=== PATIENT | male | born 1990 | race Caucasian/White ===

== ENCOUNTER 2018-03-26 14:37 | Emergency (ER) | payer OTHER ==
[~2018-03-26] VITALS: Ht 182.9 cm; Wt 77.1 kg
--- OUTSIDE RECORDS SUMMARY | 2018-03-26 14:41 | XMS REPORT ---
Author Author CARLOS CURRIE Organization [facility] Address [address] [place] [address] Care Team Providers Care Inside Sales Assistant Name Role Phone CARLOS CURRIE Unavailable PROBLEMS Type Condition ICD9-CM Code [id number] Code Onset Dates Condition Status SNOMED Code Problem Paranoid schizophrenia F20.0 Active 91838997 ALLERGIES No Information ENCOUNTERS Encounter Location Date Diagnosis [facility] [address] [place] [phone] Mar, [facility] [address], [place] [address] Feb, [facility] [id number] [place] [phone] Feb, Paranoid schizophrenia F20.0 IMMUNIZATIONS No Known Immunizations SOCIAL HISTORY Never Assessed REASON FOR VISIT intake PLAN OF CARE VITAL SIGNS MEDICATIONS Medication Instructions Dosage Frequency Start Date End Date Duration Status Abilify 10 MG Orally Once a day 1 tablet 24h 30 day(s) Active Geodon 40 MG Orally Twice a day 1 capsule with food 12h 30 day(s) Active RESULTS No Results PROCEDURES Procedure Date Ordered Result Body Site [facility] VISIT MENTAL HEALTH NEW PT Mar 13, 2018 Psych diagnostic evaluation, new patient Mar 13, 2018 INSTRUCTIONS MEDICATIONS ADMINISTERED No Known Medications
--- NOTE | 2018-03-26 15:06 | ED GU-Male ---
General Chief Complaint: -Male Stated Complaint: BLOOD IN URINE History of Present Illness Date Seen by Provider: Mar 26, 2018 Time Seen by Provider: 15:05 Initial Comments 27 year old male presents for Hematuria. He noted dark red to brown blood, with last 3 urinations today. He denies back pain or history of renal calculi. No hx of STIs or other penile discharge. He denies any trauma to his abdomen, back or genitalia. He is homeless, living in tent [place]. He went to [facility] today, that is when he noted the blood. Timing/Duration: this morning Location: suprapubic Radiation: none Activities at Onset: none Prior Genitourinary Problems: none Associated Symptoms: denies symptoms, abdominal pain (trace suprapubic); No diaphoresis, No dysuria, No fever/chills, No loss of bladder control, No lower back pain, No nausea/vomiting, No polyuria, No urinary frequency (STANISLAW OJEDA) Allergies and Home Medications Allergies Coded Allergies: alprazolam (Verified Allergy, Unknown, 03/26/18) haloperidol (Verified Allergy, Unknown, 03/26/18) Patient Home Medication List Home Medication List Reviewed: Yes (STANISLAW OJEDA) Review of Systems Review of Systems Constitutional: no symptoms reported, see HPI Genitourinary: see HPI; denies dysuria, denies frequency, denies flank pain; hematuria; denies incontinence, denies pain, denies urgency (STANISLAW OJEDA) All Other Systemes Reviewed Negative Unless Noted: Yes (STANISLAW OJEDA) Past Tjfaxqd-Llrjzp-Igakto Hx Past Med/Social Hx: Reviewed Nursing Past Med/Soc Hx (STANISLAW OJEDA) Physical Exam Vital Signs Vital Signs - First Documented 03/26/18 15:07 Temp 97.5 Pulse 90 Resp 20 B/P (MAP) 120/73 (89) Pulse Ox 99 O2 Delivery Room Air (EVARISTO QUILES) Vital Signs Capillary Refill : (STANISLAW OJEDA) Height, Weight, BMI Height: '" Weight: lbs. oz. kg; BMI Method: General Appearance: WD/WN, no apparent distress Cardiovascular: normal peripheral pulses, regular rate, rhythm Respiratory: chest non-tender, lungs clear, normal breath sounds Gastrointestinal: normal bowel sounds, non tender, soft; No distended, No guarding, No rebound; tenderness (trace suprapubic and just to right of midline. ); No hernia, No mass, No hepatomegaly, No spleenomegaly Rectal: deferred Neurologic/Psychiatric: no motor/sensory deficits, alert, normal mood/affect, oriented x 3 (STANISLAW OJEDA) Progress/Results/Core Measures Suspected Sepsis SIRS Temperature: Pulse: Respiratory Rate: Blood Pressure / Mean: (STANISLAW OJEDA) Results/Orders Lab Results Laboratory Tests Test 03/26/18 15:05 Range/Units Urine Color YELLOW Urine Clarity CLEAR Urine pH 5 5-9 Urine Specific [place] 1.020 1.016-1.022 Urine Protein 3+ H NEGATIVE Urine Glucose (UA) NEGATIVE NEGATIVE Urine Ketones NEGATIVE NEGATIVE Urine Nitrite NEGATIVE NEGATIVE Urine Bilirubin NEGATIVE NEGATIVE Urine Urobilinogen 1 NORMAL MG/DL Urine Leukocyte Esterase 1+ H NEGATIVE Urine RBC (Auto) 5+ H NEGATIVE Urine RBC TNTC H /HPF Urine WBC 0-2 /HPF Urine Crystals NONE /LPF Urine Bacteria NONE /HPF Urine Casts NONE /LPF Urine Mucus NEGATIVE /LPF Urine Culture Indicated NO (EVARISTO QUILES) My Orders Orders - EVARISTO QUILES General/Regular (03/26/18 Dinner) Acetaminophen Tablet (Tylenol Tablet) (03/26/18 17:00) Neis Elder Dna Urine Test (03/26/18 16:56) Chlamydia Trachomatis Urine (03/26/18 16:56) (EVARISTO QUILES) Vital Signs/I&O 03/26/18 15:07 Temp 97.5 Pulse 90 Resp 20 B/P (MAP) 120/73 (89) Pulse Ox 99 O2 Delivery Room Air (EVARISTO QUILES) Vital Signs/I&O Capillary Refill : (STANISLAW OJEDA) Progress Note : Time: 15:05 Progress Note Patient seen and evaluated, will complete UA and reevaluate. Patient denies pain at this time. 1525 UA shows large number of rbc's. Will obtain CT for kidney stones. 1545 Transfer of care to MARCEL Padilla. Report given and patient notified. (STANISLAW OJEDA) Diagnostic Imaging Diagonstic Imaging: CT Plain Films/CT/US/NM/MRI: abdomen, pelvis Comments NAME: ASHTYN ROMERO [facility] REC#: [id number] PT STATUS: REG ER : 1990 PHYSICIAN: STANISLAW OJEDA ADMIT DATE: 03/26/18/ER Signed Date of Exam: 03/26/18 CT ABD/PELVIS WO(KIDNEY STONE) PROCEDURE: CT urinary tract, rule out kidney stone. TECHNIQUE: Multiple contiguous axial images were obtained through the abdomen and pelvis without the use of intravenous contrast. INDICATION: Hematuria and pelvic pain. COMPARISON: No prior studies are available for comparison. FINDINGS: The lung bases are clear. There is a tiny low-density in the dome of the right lobe of the liver, too small to characterize but likely a cyst. The gallbladder is unremarkable. The pancreas and spleen are unremarkable. No adrenal mass is detected. No renal calculi or hydronephrosis is identified. The small and large bowel loops are normal in caliber. The appendix is visualized and unremarkable. No inflammatory process is seen. There is no free fluid. Bladder is decompressed. IMPRESSION: Unremarkable noncontrast CT of the abdomen and pelvis. No definite urinary tract calculi or obstruction is seen. Dictated by: Dictated on workstation # [id number] Dict: 03/26/18 1538 Trans: 03/26/18 1548 Interpreted by: ARSALAN NEGRON MD Electronically signed by: ARSALAN NEGRON MD 03/26/18 1548 (STANISLAW OJEDA) Departure Communication (Admissions) 1637 patient case discussed with Dr. Kaleigh Maier including history, vital signs, laboratory findings, and diagnostic study findings. She will have [facility] scheduling contact me to schedule an appointment for the patient for recheck tomorrow. 1645 patient scheduled for a follow-up appointment with Dr. Velez tomorrow at 1400 for recheck and further evaluation. All laboratory findings, diagnostic study findings, and plan for follow-up with [facility] tomorrow discussed with the patient. Patient was given a food tray prior to discharge to home. Patient is to return immediately to the emergency department for worsened hematuria, inability to urinate, fever, abdominal pain, abdominal swelling, or any other concerns. Patient verbalizes understanding and agrees with the treatment plan. (EVARISTO QUILES) Impression Primary Impression: Hematuria Qualified Codes: R31.9 - Hematuria, unspecified Disposition: 01 HOME, SELF-CARE Condition: Improved Departure-Patient Inst. Decision time for Depature: 16:53 (EVARISTO QUILES) Referrals: COURTNEY VELEZ MD Patient Instructions: Blood in the Urine (Hematuria) in Adults, Kidney Stones ( DC), STD Prevention Add. Discharge Instructions: All discharge instructions reviewed with patient and/or family. Voiced understanding. Tylenol over the counter for pain. Drink plenty of fluids. Follow-up with Dr. Velez at [facility] tomorrow at 2:00 pm for recheck and further testing. They may want to do an ultrasound, recheck your urine, check labs, and/or refer you to a urologist. Return to the emergency department for increase blood in the urine, inability urinating, fever, vomiting , abdominal swelling, increased pain, or any other concerns. STANISLAW OJEDA Mar 26, 2018 15:06 EVARISTO QUILES Mar 26, 2018 16:56
[2018-03-26 15:12] LABS: BILIRUBIN,URINE NEGATIVE (NEGATIVE); CLARITY,URINE CLEAR; COLOR,URINE YELLOW; GLUCOSE, URINE (UA) NEGATIVE (NEGATIVE); KETONES,URINE NEGATIVE (NEGATIVE); LEUKOCYTE ESTERASE ,URINE 1+ (NEGATIVE); NITRITE,URINE NEGATIVE (NEGATIVE); PH,URINE 5 (5-9); PROTEIN,URINE 3+ (NEGATIVE); UROBILINOGEN,URINE 1 MG/DL (NORMAL)
[2018-03-26 15:19] LABS: RBC,URINE TNTC /HPF; WBC,URINE 0-2 /HPF
--- NOTE | 2018-03-26 15:43 | Diagnostic Imaging Report ---
PROCEDURE: CT urinary tract, rule out kidney stone. TECHNIQUE: Multiple contiguous axial images were obtained through the abdomen and pelvis without the use of intravenous contrast. INDICATION: Hematuria and pelvic pain. COMPARISON: No prior studies are available for comparison. FINDINGS: The lung bases are clear. There is a tiny low-density in the dome of the right lobe of the liver, too small to characterize but likely a cyst. The gallbladder is unremarkable. The pancreas and spleen are unremarkable. No adrenal mass is detected. No renal calculi or hydronephrosis is identified. The small and large bowel loops are normal in caliber. The appendix is visualized and unremarkable. No inflammatory process is seen. There is no free fluid. Bladder is decompressed. IMPRESSION: Unremarkable noncontrast CT of the abdomen and pelvis. No definite urinary tract calculi or obstruction is seen. Dictated by: Dictated on workstation # [id number]
[2018-03-26] MEDS ORDERED: ACETAMINOPHEN 500 MG TAB (TYLENOL) PO ONE (17:00)
[2018-03-26 17:58] VITALS: BP 120/73
== END 2018-03-26 17:58 | disposition home or self-care (01) ==
LOC: ER 14:39
DX: R31.9 Hematuria, unspecified (principal); Z88.8 Allergy status to other drugs, medicaments and biological substances
CPT/HCPCS: 36415; 74176; 81000; 87491; 87591

== ENCOUNTER 2018-04-29 06:17 | Emergency (ER) | payer OTHER ==
[~2018-04-29] VITALS: Ht 182.9 cm; Wt 71.2 kg
--- OUTSIDE RECORDS SUMMARY | 2018-04-29 06:29 | XMS REPORT ---
Author Author CARLOS CURRIE Organization [facility] Address [address] [place] [address] Care Team Providers Care Grain Farmer Name Role Phone CARLOS CURRIE Unavailable PROBLEMS Type Condition ICD9-CM Code [id number] Code Onset Dates Condition Status SNOMED Code Problem Paranoid schizophrenia F20.0 Active [id number] ALLERGIES No Information ENCOUNTERS Encounter Location Date Diagnosis [facility] [id number] [place] [phone] Mar, [facility] [address] [place] [address] Mar, [facility] [address] [place] [phone] Mar, [facility] [id number] [place] [address] Feb, Paranoid schizophrenia F20.0 IMMUNIZATIONS No Known Immunizations SOCIAL HISTORY Never Assessed REASON FOR VISIT Request to reschedule PLAN OF CARE VITAL SIGNS MEDICATIONS Unknown Medications RESULTS No Results PROCEDURES No Known procedures INSTRUCTIONS MEDICATIONS ADMINISTERED No Known Medications
--- OUTSIDE RECORDS SUMMARY | 2018-04-29 06:29 | XMS REPORT ---
Author Author COURTNEY VELEZ Organization [facility] [place] Address [address] [place] [address] Care Team Providers Care Dj Instructor Name Role Phone COURTNEY VELEZ Unavailable PROBLEMS Type Condition ICD9-CM Code [id number] Code Onset Dates Condition Status SNOMED Code Problem Paranoid schizophrenia F20.0 Active [id number] ALLERGIES Substance Reaction Event Type Date Status Xanax vomiting Drug Allergy Mar, Active Haldol anaphylaxis Drug Allergy Mar, Active ENCOUNTERS Encounter Location Date Diagnosis [facility] [place] [address] [place] [phone] Mar, Acute prostatitis N41.0 [facility] [place] [address] [place] [id number] [place] [phone] Mar, [facility] [place] [address] [place] [id number] [place] [phone] Feb, Paranoid schizophrenia F20.0 IMMUNIZATIONS No Known Immunizations SOCIAL HISTORY Never Assessed REASON FOR VISIT ER f/u - 03/26/18 urinating blood [facility] MA , no more blood but urine is really dark today [facility] mA , did urine sample/long dip in visit [facility] ma PLAN OF CARE Activity Details Follow Up prn Reason: VITAL SIGNS Height 6'0 in 2018-03-27 Weight 156 lbs 2018-03-27 Temperature 97.7 degrees Fahrenheit 2018-03-27 Heart Rate 74 bpm 2018-03-27 Respiratory Rate 20 2018-03-27 BMI 21.16 kg/m2 2018-03-27 Blood pressure systolic 110 mmHg 2018-03-27 Blood pressure diastolic 60 mmHg 2018-03-27 MEDICATIONS Medication Instructions Dosage Frequency Start Date End Date Duration Status Abilify 10 MG Orally Once a day 1 tablet 24h 30 day(s) Not-Taking Geodon 40 MG Orally Twice a day 1 capsule with food 12h 30 day(s) Not-Taking Bactrim DS 800-160 MG Orally Twice a day 1 tablet 12h Mar,Mar 10 day(s) Active RESULTS Name Result Date Reference Range UA LONG DIP (IN HOUSE) 2018-03-27 Lot # Exp date Clarity cloudy Color orange Odor no GLU neg MIKIE neg KET neg SG 1.030 BLO 2+ pH 6.5 Protein 1+ URO 1.0 NIT neg SELENA neg Lot # Exp date PROCEDURES Procedure Date Ordered Result Body Site URINALYSIS, AUTO, W/O SCOPE Mar 27, 2018 [facility] VISIT ESTABLISHED PATIENT Mar 27, 2018 INSTRUCTIONS MEDICATIONS ADMINISTERED No Known Medications MEDICAL (GENERAL) HISTORY Type Description Date Surgical History No Surgical history information Hospitalization History schizophrenia 2012
[2018-04-29 06:48] LABS: BILIRUBIN,URINE NEGATIVE (NEGATIVE); CLARITY,URINE VERY CLOUDY; COLOR,URINE YELLOW; GLUCOSE, URINE (UA) NEGATIVE (NEGATIVE); KETONES,URINE NEGATIVE (NEGATIVE); LEUKOCYTE ESTERASE ,URINE 1+ (NEGATIVE); NITRITE,URINE NEGATIVE (NEGATIVE); PH,URINE 8 (5-9); PROTEIN,URINE NEGATIVE (NEGATIVE); UROBILINOGEN,URINE NORMAL (NORMAL)
[2018-04-29 07:02] LABS: AMORPHOUS SEDIMENT,UR LARGE AMOR PHOSPHATE /LPF; BACTERIA,URINE FEW /HPF; SQUAMOUS EPITHELIAL CELL,UR 0-2 /HPF; WBC,URINE 0-2 /HPF
[2018-04-29] MEDS ORDERED: ANTACID SUSP 30 ML UDC (MYLANTA) PO ONE (07:45)
[2018-04-29] MEDS ORDERED: LIDOCAINE 2% VISCOUS 15 ML UDC PO ONE (07:45)
--- NOTE | 2018-04-29 08:25 | Diagnostic Imaging Report ---
PATIENT HISTORY: Intermittent lower left abdominal pain. TECHNIQUE: Supine and upright frontal views of the abdomen. COMPARISON: CT from 03/26/2018 FINDINGS: The bowel loops are nondistended without evidence of obstruction. There is a small to moderate amount of stool in the colon. No large collection of free air is seen. No acute osseous abnormalities seen. IMPRESSION: No evidence of bowel obstruction or large collection of free air. Dictated by: Dictated on workstation # [id number]
[2018-04-29] MEDS ORDERED: POLY119P5 PO (08:27)
[2018-04-29] MEDS ORDERED: FAMO-119 PO (08:27)
--- NOTE | 2018-04-29 08:27 | ED Abdominal Pain ---
General Chief Complaint: Abdominal/GI Problems Stated Complaint: ABD PAIN Nursing Triage Note: C/O INTERMITTANT LOWER ABDOMINAL PAIN, INCREASED FLATUS X4HRS. Sepsis Screen: No Definite Risk Allergies and Home Medications Allergies Coded Allergies: alprazolam (Verified Allergy, Unknown, 03/26/18) haloperidol (Verified Allergy, Unknown, 03/26/18) Home Medications No Active Prescriptions or Reported Meds Past Jmrnbwp-Qaqjqf-Mwrnvl Hx Patient Social History Alcohol Use: Occasionally Uses Recreational Drug Use: Yes Drug of Choice: METH Smoking Status: Current Everyday Smoker Type Used: Cigarettes Recent Foreign Travel: No Contact w/Someone Who Travel: No Recent Infectious Disease Expo: No Recent Hopitalizations: No Immunizations Up To Date Tetanus Booster (TDap): Unknown PED Vaccines UTD: Yes Seasonal Allergies Seasonal Allergies: No Past Medical History Surgeries: No Respiratory: No Cardiac: No Neurological: No Genitourinary: No Gastrointestinal: No Musculoskeletal: No Endocrine: No HEENT: No Cancer: No Psychosocial: Yes Schizophrenia Integumentary: No Blood Disorders: No Physical Exam Vital Signs Vital Signs - First Documented 04/29/18 06:30 Temp 96.6 Pulse 74 Resp 16 B/P (MAP) 124/78 (93) Pulse Ox 99 O2 Delivery Room Air Capillary Refill : Less Than 3 Seconds Height/Weight/BMI Height: 6'0" Weight: 157lbs. oz. 71.705799yz; BMI Method:Stated Progress/Results/Core Measures Results/Orders Lab Results Laboratory Tests Test 04/29/18 06:40 Range/Units Urine Color YELLOW Urine Clarity VERY CLOUDY H Urine pH 8 5-9 Urine Specific [place] 1.015 L 1.016-1.022 Urine Protein NEGATIVE NEGATIVE Urine Glucose (UA) NEGATIVE NEGATIVE Urine Ketones NEGATIVE NEGATIVE Urine Nitrite NEGATIVE NEGATIVE Urine Bilirubin NEGATIVE NEGATIVE Urine Urobilinogen NORMAL NORMAL MG/DL Urine Leukocyte Esterase 1+ H NEGATIVE Urine RBC (Auto) NEGATIVE NEGATIVE Urine RBC NONE /HPF Urine WBC 0-2 /HPF Urine Squamous Epithelial Cells 0-2 /HPF Urine Crystals PRESENT H /LPF Urine Amorphous Sediment LARGE BASSAM PHOSPHATE H /LPF Urine Bacteria FEW H /HPF Urine Casts NONE /LPF Urine Mucus NEGATIVE /LPF Urine Culture Indicated YES My Orders Orders - PAMELA BILLINGS MD Ua Culture If Indicated (04/29/18 06:26) Urine Culture (04/29/18 06:40) Lidocaine 2% Viscous 15 Ml (Xylocaine Vi (04/29/18 07:45) Antacid Suspension (Mylanta Suspension (04/29/18 07:45) Abdomen, Flat & Upright/Decub (04/29/18 07:34) Vital Signs/I&O 04/29/18 06:30 Temp 96.6 Pulse 74 Resp 16 B/P (MAP) 124/78 (93) Pulse Ox 99 O2 Delivery Room Air Blood Pressure Mean: 93 Progress Progress Note : Progress Note GI cocktail improved upper abdominal pain. Departure Impression Primary Impression: Generalized abdominal pain Additional Impression: Constipation Qualified Codes: K59.00 - Constipation, unspecified Disposition: HOME, SELF-CARE Condition: Improved Departure-Patient Inst. Decision time for Depature: 08:24 Referrals: NO,LOCAL PHYSICIAN (PCP/Family) Primary Care Physician Patient Instructions: Acute Abdomen (Belly Pain), Adult (DC), Constipation, Adult (DC), Gastritis (DC) Add. Discharge Instructions: Constipation and gastritis may be contributing to your abdominal pain. Take an antacid medication such as Pepcid (famotidine) 20 mg twice daily for the next couple of weeks. Use a gentle laxative such as MiraLAX (polyethylene glycol) twice daily until constipation clears. Drink plenty of clear liquids and eat a diet high in fiber with plenty of fruits and vegetables. Return to care if symptoms worsen. Follow-up with your primary care provider soon as possible. All discharge instructions reviewed with patient and/or family. Voiced understanding. Scripts Polyethylene Glycol 3350 (Miralax) 119 Gm Powder 17 GM PO BID, #1 EA Fill cap to line. Then dissolved powder in 8-12 ounces of liquid. Prov: PAMELA BILLINGS MD 04/29/18 Famotidine (Pepcid) 20 Mg Tablet 20 MG PO BID, #30 TAB Prov: PAMELA BILLINGS MD 04/29/18 PAMELA BILLINGS MD Apr 29, 2018 08:27
[2018-04-29 08:32] VITALS: BP 123/70
== END 2018-04-29 08:33 | disposition home or self-care (01) ==
LOC: EDUNIT# 06:17 → ER 06:18
DX: K59.00 Constipation, unspecified (principal); F15.10 Other stimulant abuse, uncomplicated; F17.210 Nicotine dependence, cigarettes, uncomplicated; Z88.8 Allergy status to other drugs, medicaments and biological substances
CPT/HCPCS: 74019; 81000; 87088

== ENCOUNTER 2018-06-10 14:02 | Emergency (ER) | payer SELFPAY ==
[~2018-06-10] VITALS: Ht 182.9 cm; Wt 77.1 kg
[~2018-06-10 14:02] MED LIST: FAMO-119 PO; POLY119P5 PO
[2018-06-10] MEDS ORDERED: NS IV 1000 ML 1,000 ML IV ONE (14:17)
[2018-06-10 14:25] LABS: BASOPHILS # (AUTO) 0.1 10^3/uL (0.0-0.1); BASOPHILS % (AUTO) 1 % (0-10); EOSINOPHILS # (AUTO) 0.2 10^3/uL (0.0-0.3); EOSINOPHILS % (AUTO) 2 % (0-10); HEMATOCRIT 41 % (40-54); HEMOGLOBIN 14.1 G/DL (13.3-17.7); LYMPHOCYTES # (AUTO) 2.4 X 10^3 (1.0-4.0); LYMPHOCYTES % (AUTO) 23 % (12-44); MEAN CORPUSCULAR HEMOGLOBIN 31 PG (25-34); MEAN CORPUSCULAR HGB CONC 34 G/DL (32-36); MEAN CORPUSCULAR VOLUME 89 FL (80-99); MEAN PLATELET VOLUME 9.5 FL (7.4-10.4); MONOCYTES # (AUTO) 0.9 X 10^3 (0.0-1.0); MONOCYTES % (AUTO) 9 % (0-12); NEUTROPHILS # (AUTO) 6.8 X 10^3 (1.8-7.8); NEUTROPHILS % (AUTO) 66 % (42-75); PLATELET COUNT 301 10^3/uL (130-400); RED CELL DISTRIBUTION WIDTH 13.3 % (10.0-14.5); WHITE BLOOD COUNT 10.3 10^3/uL (4.3-11.0)
--- NOTE | 2018-06-10 14:27 | ED GI ---
General Chief Complaint: Abdominal/GI Problems Stated Complaint: ABD PAIN Source of Information: Patient Exam Limitations: No Limitations History of Present Illness Date Seen by Provider: Jun 10, 2018 Time Seen by Provider: 14:09 Initial Comments Here with vague report of abdominal pain. Apparently he is homeless and takes his meals at the [facility] and/or [employer]. He states after he eats he gets some pain. Apparently he was found sleeping and passerby woke him up and asked him if he was okay. He reported abdominal pain and they subsequently called the ambulance. On arrival here he is in no distress but does report some upper abdominal pain bilateral. He is nonspecific about this. Denies nausea or vomiting. Denies other concerns except for states that he hates being homeless. Timing/Duration: 1 Hour, Changing Over Time Severity/Quality: Moderate, Aching Location: RUQ, LUQ Radiation: No Radiation Activities at Onset: Sleeping Modifying Factors: Worsens With Eating; Improves With Resting Associated Symptoms: No Back Pain, No Chest Pain, No Fever/Chills, No Nausea/ Vomiting, No Shortness of Air, No Swelling/Mass in Abdomen, No Weakness Allergies and Home Medications Allergies Coded Allergies: alprazolam (Verified Allergy, Unknown, 03/26/18) haloperidol (Verified Allergy, Unknown, 03/26/18) Home Medications Famotidine 20 Mg Tablet, 20 MG PO BID Prescribed by: PAMELA LAWRENCE on 04/29/18826 Polyethylene Glycol 3350 119 Gm Powder, 17 GM PO BID Fill cap to line. Then dissolved powder in 8-12 ounces of liquid. Prescribed by: PAMELA LAWRENCE on 04/29/18826 Patient Home Medication List Home Medication List Reviewed: Yes Review of Systems Review of Systems Constitutional: see HPI; No chills, No fever EENTM: No Symptoms Reported Respiratory: No Symptoms Reported Cardiovascular: No Symptoms Reported Gastrointestinal: See HPI, Abdominal Pain; Denies Diarrhea, Denies Nausea, Denies Vomiting Genitourinary: No Symptoms Reported All Other Systems Reviewed Negative Unless Noted: Yes Past Pbddyvt-Pcjvrx-Ntiikn Hx Patient Social History Drug of Choice: METH Type Used: Cigarettes Recent Hopitalizations: No Immunizations Up To Date Tetanus Booster (TDap): Unknown PED Vaccines UTD: Yes Seasonal Allergies Seasonal Allergies: No Past Medical History Surgeries: No Respiratory: No Cardiac: No Neurological: No Genitourinary: No Gastrointestinal: No Musculoskeletal: No Endocrine: No HEENT: No Cancer: No Psychosocial: Yes Schizophrenia Integumentary: No Blood Disorders: No Physical Exam Vital Signs Vital Signs - First Documented 06/10/18 14:05 Temp 97.6 Pulse 74 Resp 18 B/P (MAP) 124/79 (94) Pulse Ox 100 O2 Delivery Room Air Capillary Refill : Height/Weight/BMI Height: 6'0" Weight: 157lbs. oz. 71.763272qt; BMI Method:Stated General Appearance: WD/WN, no apparent distress HEENT: PERRL/EOMI, pharynx normal Neck: full range of motion, supple Respiratory: lungs clear, normal breath sounds Cardiovascular: regular rate, rhythm, no murmur Peripheral Pulses: 2+ Dorsalis Pedis (R), 2+ Left Dors-Pedis (L), 2+ Radial Pulses (R), 2+ Radial Pulses (L) Gastrointestinal: soft; No guarding, No rebound; tenderness (bilateral upper quadrant mild tenderness to palpation without rebound or guarding) Extremities: non-tender, normal inspection Back: normal inspection, no CVA tenderness, no vertebral tenderness Neurologic/Psychiatric: alert, oriented x 3 Skin: normal color, warm/dry Progress/Results/Core Measures Results/Orders Lab Results Laboratory Tests Test 06/10/18 14:15 06/10/18 14:25 Range/Units White Blood Count 10.3 4.3-11.0 10^3/uL Red Blood Count 4.60 4.35-5.85 10^6/uL Hemoglobin 14.1 13.3-17.7 G/DL Hematocrit 41 40-54 % Mean Corpuscular Volume 89 80-99 FL Mean Corpuscular Hemoglobin 31 25-34 PG Mean Corpuscular Hemoglobin Concent 34 32-36 G/DL Red Cell Distribution Width 13.3 10.0-14.5 % Platelet Count 301 130-400 10^3/uL Mean Platelet Volume 9.5 7.4-10.4 FL Neutrophils (%) (Auto) 66 42-75 % Lymphocytes (%) (Auto) 23 12-44 % Monocytes (%) (Auto) 9 0-12 % Eosinophils (%) (Auto) 2 0-10 % Basophils (%) (Auto) 1 0-10 % Neutrophils # (Auto) 6.8 1.8-7.8 X 10^3 Lymphocytes # (Auto) 2.4 1.0-4.0 X 10^3 Monocytes # (Auto) 0.9 0.0-1.0 X 10^3 Eosinophils # (Auto) 0.2 0.0-0.3 10^3/uL Basophils # (Auto) 0.1 0.0-0.1 10^3/uL Sodium Level 141 135-145 MMOL/L Potassium Level 4.5 3.6-5.0 MMOL/L Chloride Level 102 98-107 MMOL/L Carbon Dioxide Level 28 21-32 MMOL/L Anion Gap 11 5-14 MMOL/L Blood Urea Nitrogen 19 H 7-18 MG/DL Creatinine 0.78 0.60-1.30 MG/DL Estimat Glomerular Filtration Rate > 60 BUN/Creatinine Ratio 24 Glucose Level 72 70-105 MG/DL Calcium Level 9.4 8.5-10.1 MG/DL Corrected Calcium 9.2 8.5-10.1 MG/DL Total Bilirubin 0.3 0.1-1.0 MG/DL Aspartate Amino Transf (AST/SGOT) 21 5-34 U/L Alanine Aminotransferase (ALT/SGPT) 19 0-55 U/L Alkaline Phosphatase 65 40-136 U/L Total Protein 7.3 6.4-8.2 GM/DL Albumin 4.3 3.2-4.5 GM/DL Lipase 35 8-78 U/L Salicylates Level < 5.0 L 5.0-20.0 MG/DL Acetaminophen Level < 10 L 10-30 UG/ML Serum Alcohol < 10 <10 MG/DL Urine Color YELLOW Urine Clarity CLEAR Urine pH 6 5-9 Urine Specific [place] 1.025 H 1.016-1.022 Urine Protein NEGATIVE NEGATIVE Urine Glucose (UA) NEGATIVE NEGATIVE Urine Ketones NEGATIVE NEGATIVE Urine Nitrite NEGATIVE NEGATIVE Urine Bilirubin NEGATIVE NEGATIVE Urine Urobilinogen NORMAL NORMAL MG/DL Urine Leukocyte Esterase 1+ H NEGATIVE Urine RBC (Auto) NEGATIVE NEGATIVE Urine RBC RARE /HPF Urine WBC 2-5 /HPF Urine Squamous Epithelial Cells RARE /HPF Urine Renal Epithelial Cells NONE /HPF Urine Crystals PRESENT H /LPF Urine Amorphous Sediment FEW BASSAM URATES H /LPF Urine Bacteria FEW H /HPF Urine Casts NONE /LPF Urine Mucus NEGATIVE /LPF Urine Culture Indicated NO Urine Opiates Screen NEGATIVE NEGATIVE Urine Oxycodone Screen NEGATIVE NEGATIVE Urine Methadone Screen NEGATIVE NEGATIVE Urine Propoxyphene Screen NEGATIVE NEGATIVE Urine Barbiturates Screen NEGATIVE NEGATIVE Ur Tricyclic Antidepressants Screen NEGATIVE NEGATIVE Urine Phencyclidine Screen NEGATIVE NEGATIVE Urine Amphetamines Screen NEGATIVE NEGATIVE Urine Methamphetamines Screen NEGATIVE NEGATIVE Urine Benzodiazepines Screen NEGATIVE NEGATIVE Urine Cocaine Screen NEGATIVE NEGATIVE Urine Cannabinoids Screen NEGATIVE NEGATIVE My Orders Orders - MERCY CORTEZ MD Acetaminophen (06/10/18 14:17) Alcohol (06/10/18 14:17) Cbc With Automated Diff (06/10/18 14:17) Comprehensive Metabolic Panel (06/10/18 14:17) Drug Screen Stat (Urine) (06/10/18 14:17) Lipase (06/10/18 14:17) Salicylate (06/10/18 14:17) Ua Culture If Indicated (06/10/18 14:17) Saline Lock/Iv-Start (06/10/18 14:17) Ns Iv 1000 Ml (Sodium Chloride 0.9%) (06/10/18 14:17) Medications Given in ED Current Medications Medications Dose Ordered Sig/Pa Route Start Time Stop Time Status Last Admin Dose Admin Sodium Chloride 1,000 ml @ 0 mls/hr Q0M ONCE IV 06/10/18 14:17 06/10/18 14:21 DC 06/10/18 14:38 0 MLS/HR Vital Signs/I&O 06/10/18 14:05 Temp 97.6 Pulse 74 Resp 18 B/P (MAP) 124/79 (94) Pulse Ox 100 O2 Delivery Room Air Progress Progress Note : Progress Note Seen and evaluated. IV, labs, normal saline 1 L bolus and UA ordered. Monitor patient. 1524: No acute findings and patient is pain-free currently. He declined any medication at this time. We did discuss outpatient follow-up at the clinic. He states he might do that. Discharged with return precautions. Patient verbalize understanding instructions and agreement with plan. Departure Impression Primary Impression: Upper abdominal pain Disposition: 01 HOME, SELF-CARE Condition: Stable Departure-Patient Inst. Decision time for Depature: 15:27 Referrals: SOFIE TOPETE DO NO,LOCAL PHYSICIAN (PCP) Primary Care Physician Patient Instructions: Acute Abdomen (Belly Pain), Adult (DC) Add. Discharge Instructions: All discharge instructions reviewed with patient and/or family. Voiced understanding. You normal diet and drink plenty of fluids. Follow-up with the clinic for recheck and further evaluation. You should discuss with the clinic regarding your mental health treatment as well. Return for worse pain, fever, vomiting, weakness, breathing problems or other concerns as needed. MERCY CORTEZ MD Jun 10, 2018 14:27
[2018-06-10 14:49] LABS: ALANINE AMINOTRANSFERASE 19 U/L (0-55); ALBUMIN 4.3 GM/DL (3.2-4.5); ALKALINE PHOSPHATASE 65 U/L (40-136); BILIRUBIN,TOTAL 0.3 MG/DL (0.1-1.0); BUN/CREATININE RATIO 24; CALCIUM 9.4 MG/DL (8.5-10.1); CARBON DIOXIDE 28 MMOL/L (21-32); CHLORIDE 102 MMOL/L (98-107); CREATININE SERUM 0.78 MG/DL (0.60-1.30); GFR ESTIMATED > 60; GLUCOSE 72 MG/DL (70-105); LIPASE 35 U/L (8-78); POTASSIUM 4.5 MMOL/L (3.6-5.0); SALICYLATE < 5.0 MG/DL (5.0-20.0); SODIUM 141 MMOL/L (135-145); TOTAL PROTEIN 7.3 GM/DL (6.4-8.2)
[2018-06-10 14:53] LABS: AMPHETAMINE SCREEN, URINE NEGATIVE (NEGATIVE); BARBITURATE SCREEN URINE NEGATIVE (NEGATIVE); BENZODIAZEPINES SCREEN URINE NEGATIVE (NEGATIVE); CANNABINOID SCREEN, URINE NEGATIVE (NEGATIVE); COCAINE SCREEN URINE NEGATIVE (NEGATIVE); METHADONE STAT NEGATIVE (NEGATIVE); METHAMPHETAMINE SCREEN URINE S NEGATIVE (NEGATIVE); OPIATE SCREEN URINE NEGATIVE (NEGATIVE); OXYCODONE STAT NEGATIVE (NEGATIVE); PROPOXYPHENE STAT NEGATIVE (NEGATIVE); TRICYCLIC ANTIDEPRESSANTS SCRE NEGATIVE (NEGATIVE)
[2018-06-10 14:56] LABS: ACETAMINOPHEN < 10 UG/ML (10-30)
[2018-06-10 14:57] LABS: BILIRUBIN,URINE NEGATIVE (NEGATIVE); CLARITY,URINE CLEAR; COLOR,URINE YELLOW; GLUCOSE, URINE (UA) NEGATIVE (NEGATIVE); KETONES,URINE NEGATIVE (NEGATIVE); LEUKOCYTE ESTERASE ,URINE 1+ (NEGATIVE); NITRITE,URINE NEGATIVE (NEGATIVE); PH,URINE 6 (5-9); PROTEIN,URINE NEGATIVE (NEGATIVE); UROBILINOGEN,URINE NORMAL (NORMAL)
[2018-06-10 15:04] LABS: RBC,URINE RARE /HPF
[2018-06-10 15:05] LABS: BACTERIA,URINE FEW /HPF; SQUAMOUS EPITHELIAL CELL,UR RARE /HPF
[2018-06-10 15:06] LABS: AMORPHOUS SEDIMENT,UR FEW AMOR URATES /LPF
[2018-06-10 15:48] VITALS: BP 111/77
== END 2018-06-10 15:55 | disposition home or self-care (01) ==
LOC: EDUNIT# 14:02 → ER 14:03
DX: R10.11 Right upper quadrant pain (principal); R10.12 Left upper quadrant pain; F20.9 Schizophrenia, unspecified; Z88.8 Allergy status to other drugs, medicaments and biological substances
CPT/HCPCS: 36415; 80053; 80306; 80320; 80329; 81000; 83690; 85025